=== PATIENT | male | born 1955 | race Caucasian/White ===

== ENCOUNTER 2019-10-04 15:45 | Emergency (ER) | payer OTHER ==
[2019-10-04] MEDS ORDERED: NS 0.9% 1000 ML** 1,000 ML IV ONE (15:48)
[2019-10-04] MEDS ORDERED: Ondansetron INJ* 2 MG/ML VIAL IV ONE (15:49)
--- NOTE | 2019-10-04 16:05 | ED ---
Neurological HPI - HPI Summary HPI Summary: 64 y/o male presented to [facility] by [facility] complaining of dizziness beginning at 1445 when he was last known well and called EMS. He was working out and went home to take a bath, at which time he became nauseous and felt as if the room was spinning. When EMS arrived, he was diaphoretic and was was not ambulatory secondary to being dizzy. The dizziness is also aggravated with movement of head. He denies any CP or SOB. In the ambulance, vitals showed hypertension and sinus to sinus tach 80s-100s bpm, BG 133. He was given 4mg Zofran on the way to [facility] but still nauseous in the room. Hx of possible vertigo ; recorded in past visits but patient declines previous symptoms. Luna medina called from room at 1548. Patient immediately to CT. - History of Current Complaint Chief Complaint: EDDizziness Stated Complaint: DIZZINESS PER EMS Time Seen by Provider: 10/04/19 15:48 Hx Obtained From: Patient, EMS Onset/Duration: Sudden Onset Timing: Sudden Onset Onset Severity: Moderate Current Severity: Severe Pain Intensity: 0 Pain Scale Used: 0-10 Numeric Character: Room Spinning, Dizzy Aggravating: Change in Head Position Alleviating: Closing Eyes Associated Signs and Symptoms: Positive: Unsteady Gait - not ambulatory at scene secondary to dizziness, Dizziness. Negative: Chest Pain TPA Considered: No - brain CT negative - Allergy/Home Medications Allergies/Adverse Reactions: Allergies Allergy/AdvReac Type Severity Reaction Status Date / Time colesevelam [From WelChol] Allergy Unknown Verified 10/04/19 16:10 Reaction Details niacin Allergy Unknown Verified 10/04/19 16:10 Reaction Details Kvfmutm-Drf-[id number] Reductase Allergy Unknown Verified 10/04/19 16:10 Inhibitor Reaction Details PMH/Surg Hx/FS Hx/Imm Hx Endocrine/Hematology History: Denies: Hx Diabetes Cardiovascular History: Reports: Hx Hypercholesterolemia Neurological History: Reports: Other Neuro Impairments/Disorders - possible vertigo - Surgical History Surgical History: None Surgery Procedure, Year, and Place: none Infectious Disease History: No Infectious Disease History: Denies: Traveled Outside the [place] in Last 30 Days - Family History Known Family History: Negative: Renal Disease - Social History Alcohol Use: None Hx Substance Use: No Substance Use Type: Reports: None Hx Tobacco Use: No Smoking Status (MU): Never Smoked Tobacco Review of Systems Negative: Chest Pain Negative: Shortness Of Breath Positive: Vomiting, Nausea Neurological: Other - dizziness All Other Systems Reviewed And Are Negative: Yes Physical Exam - Summary Physical Exam Summary: Constitutional: Well-developed, Well-nourished, Alert. (+) Moderate Distress, Diaphoretic Skin: Warm, Dry HENT: Normocephalic; Atraumatic Eyes: Conjunctiva normal Neck: Musculoskeletal ROM normal neck. (-) JVD, (-) Nuchal rigidity Cardio: Rhythm regular, rate normal, Heart sounds normal; Intact distal pulses; Radial pulses are 2+ and symmetric. (-) Murmur Pulmonary/Chest wall: Effort normal. (-) Respiratory distress, (-) Wheezes, (-) Rales Abd: Soft. (-) Tenderness, (-) Distension, (-) Guarding, (-) Rebound Musculoskeletal: (-) Edema Lymph: (-) Cervical adenopathy Neuro: Alert, PERRL, Oriented x3, Strength normal, Cranial nerves II-XII are grossly intact. SILT, Strength 5/5 BUE and BLE, (-) Dysmetria, (-) Nystagmus, gait deferred. Right side nystagmus. [place]-Hallpike positive on left. Psych: Mood and affect Normal Triage Information Reviewed: Yes Vital Signs On Initial Exam: Initial Vitals Temp Pulse Resp BP Pulse Ox 95.4 F 97 18 175/150 94 10/04/19 15:47 10/04/19 15:47 10/04/19 15:47 10/04/19 15:47 10/04/19 15:47 Vital Signs Reviewed: Yes - [place] Coma Scale Best Eye Response: 4 - Spontaneous Best Motor Response: 6 - Obeys Commands Best Verbal Response: 5 - Oriented Coma Scale Total: 15 Procedures - Sedation Patient Received Moderate/Deep Sedation with Procedure: No Diagnostics - Vital Signs Vital Signs Temp Pulse Resp BP Pulse Ox 10/04/19 15:47 95.4 F 97 18 175/150 94 - Laboratory Result Diagrams: 10/04/19 16:15 10/04/19 16:15 Lab Statement: Any lab studies that have been ordered have been reviewed, and results considered in the medical decision making process. - Radiology CXR Radiology Interpretation Completed By: Radiologist Summary of Radiographic Findings: IMPRESSION: NO ACTIVE CARDIOPULMONARY DISEASE IS NOTED. This report was reviewed by the ED physician. cxr Radiology Interpretation Completed By: Radiologist Summary of Radiographic Findings: IMPRESSION: NO ACTIVE CARDIOPULMONARY DISEASE IS NOTED. This report was reviewed by the ED physician. - CT Brain CT CT Interpretation Completed By: Radiologist Summary of CT Findings: IMPRESSION: No definite intracranial mass or hemorrhage is noted. This report was reviewed by the ED physician. head CT Interpretation Completed By: Radiologist Summary of CT Findings: IMPRESSION: No definite intracranial mass or hemorrhage is noted. This report was reviewed by the ED physician. - EKG 1603 Cardiac Rate: NL - 84 bpm EKG Rhythm: Sinus Rhythm Summary of EKG Findings: An EKG at 1603 reveals normal sinus rhythm at 84bpm, mildly prolonged QTC at 485. T-wave inversions at V1, V5, and V6. No STEMI. This EKG was reviewed and interpreted by the ED physician. NIH Scale - NIH Scale Level of Consciousness: Alert/Keenly Responsive Ask Patient the Month and His/Her Age: Both Correct Ask Pt to Open/Close Eyes and Smash Piecer/Release Non-Paretic Hand: Both Correctly Best Gaze (Only Horizontal Eye Movement): Normal Visual Field Testing: No Visual Loss Facial Paresis-Pt to Smile & Close Eyes or Grimace Symmetry: Normal/Symmetrical Motor Function - Right Arm: No Drift-Holds 10 Seconds Motor Function - Left Arm: No Drift-Holds 10 Seconds Motor Function - Right Leg: No Drift-Holds 10 Seconds Motor Function - Left Leg: No Drift-Holds 10 Seconds Limb Ataxia-Must be out of Proportion to Weakness Present: Absent Sensory (Use Pinprick to Test Arms/Legs/Trunk/Face): Normal Best Language (Describe Picture, Name Items): No Aphasia Dysarthria (Read Several Words): Normal Extinction and Inattention: No Abnormality Total Score: 0 Re-Evaluation - Re-Evaluation First Eval Re-Evaluation Time: 16:07 Comment: ED physician was informed by radiology of a negative head CT for CVA. The patient was informed of the results. Second Eval Re-Evaluation Time: 18:00 Change: Improved - feeling better, resting. Given meclizine Third Eval Re-Evaluation Time: 19:29 Change: Improved - Pt is feeling better. No recurrent vertigo. Course/Dx - Course Course Of Treatment: 64-year-old male with a history of hyperlipidemia and possible vertigo in the past presents with severe vertigo, nausea, diaphoresis. - On arrival to ED, very diaphoretic, vomiting. Unable to complete full neuro exam secondary to patient's vertigo. Patient has right-sided nystagmus, no obvious dysmetria. Code duggan called and concern for posterior stroke. Head CT negative for stroke. Patient's symptoms improved with 8 mg of Zofran. Labs notable for a normal troponin, EKG sinus without ischemic changes. Chest x-ray without any abnormalities. Case was discussed with on-call neurology at [facility]. They feel this is most likely peripheral given patient's lack of other neurologic findings, and return to baseline after medications. Patient was observed in the ED for several hours, had no recurrence of his vertigo, was able to ambulate and tolerate by mouth. Patient is feeling much better. Patient was given meclizine as needed for home, told to return for worsening symptoms and to follow up with neurology if he has persistent vertigo. Patient had intermittent elevated BP 150-180. No hx HTN. No signs of end organ damange on labs (normal trop, ekg), no headaches. Suspect could be 2/2 feeling unwell/ current vertigo episode. He will follow up w his PCP for BP recheck. - Diagnoses Provider Diagnoses: BPPV (benign paroxysmal positional vertigo) - Physician Notifications Discussed Care Of Patient With: Bo Weiss Time Discussed With Above Provider: 16:30 Instructed by Provider To: Other - Pt case was discussed with Dr. Weiss, who recommended that the ED physician perform a [place] Hallpike exam. Dr. Weiss will perform a telestroke. Discharge ED - Sign-Out/Discharge Documenting (check all that apply): Patient Departure - dc - Discharge Plan Condition: Stable Disposition: HOME Prescriptions: Meclizine TAB* [Antivert 12.5 TAB*] 12.5 mg PO TID PRN 7 Days #21 tab PRN Reason: Vertigo Patient Education Materials: Vertigo (ED), Benign Paroxysmal Positional Vertigo (ED) Referrals: Jim Sahu MD [Primary Care Provider] - Additional Instructions: You were seen in the emergency department for dizziness. Your CT scan did not show any abnormalities. We discussed this with her on-call neurologist who thinks you have benign paroxysmal positional vertigo. Please take meclizine as needed for vertigo and follow-up with neurology if you have persistent symptoms. If any studies were not completed at the time of discharge you will be called with the relevant results. Please follow up with your primary care doctor in next 2-3 days and return to emergency department for worsening vertigo, numbness or weakness of the arms or legs, inability to walk, or concerning symptoms. It was a pleasure taking care of you today. - Billing Disposition and Condition Condition: STABLE Disposition: Home - Attestation Statements Document Initiated by Cezar: Yes Documenting Scribe: Arlyn Dugan Provider For Whom Cezar is Documenting (Include Credential): Dr. Anita Myers MD Scribe Attestation: IArlyn scribed for Dr. Anita Myers MD on 10/05/19 at 0957. Scribe Documentation Reviewed: Yes Provider Attestation: The documentation as recorded by the Arlyn bryant accurately reflects the service I personally performed and the decisions made by me, Dr. Anita Myers MD Status of Cezar Document: Viewed
[2019-10-04 16:25] LABS: ABS Basophils 0.1 10^3/ul (0-0.2); ABS Eosinophils 0.1 10^3/ul (0-0.6); ABS Lymphocytes 2.9 10^3/ul (1.0-4.8); ABS Monocytes 0.5 10^3/ul (0-0.8); ABS Neutrophils 3.9 10^3/ul (1.5-7.7); Eosinophil % 0.8 %; Hematocrit 44 % (42-52); Lymphocyte % 38.6 %; Mean Corpuscular HGB Conc 35 g/dL (31-36); Mean Corpuscular Hemoglobin 30 pg (27-31); Mean Corpuscular Volume 86 fL (80-94); Mean Platelet Volume 6.9 fL (7.4-10.4); Nucleated Red Blood Cells % 0.1; Platelet Count 240 10^3/uL (150-450); Red Blood Count 5.09 10^6 /uL (4.18-5.48); Red Cell Distribution Width 14 % (10-15); White Blood Count 7.4 10^3/uL (3.5-10.8)
[2019-10-04 16:34] LABS: Activated Partial Thrombo Time 28.8 seconds (26.0-38.0); INR 0.94 (0.82-1.09)
[2019-10-04 16:43] LABS: Albumin 4.2 g/dL (3.2-5.2); Albumin/Globulin Ratio 1.9 (1-3); BUN/Creatinine Ratio 20.8 (8-20); EGFR African American 85.7 (>60); EGFR Non-African American 70.8 (>60); Globulin 2.2 g/dL (2-4); HDL Cholesterol 27.6 mg/dL; Potassium 3.3 mmol/L (3.5-5.0); Total Bilirubin 0.7 mg/dL (0.2-1.0); Total Protein 6.4 g/dL (6.4-8.9)
[2019-10-04] MEDS ORDERED: Meclizine TAB* 12.5 MG PO ONE ×2 (17:28→19:55)
[2019-10-04 20:19] VITALS: BP 175/107
== END 2019-10-04 20:17 | disposition home or self-care (01) ==
LOC: ED 15:45
DX: H81.10 Benign paroxysmal vertigo, unspecified ear (principal); E78.00 Pure hypercholesterolemia, unspecified; Z88.8 Allergy status to other drugs, medicaments and biological substances
CPT/HCPCS: 36415; 70450; 71045; 80053; 80061; 83605; 84484; 85025; 85610; 85730; 93005; 96361; 96374; 99284; A9270-GY; J2405

== ENCOUNTER 2022-08-16 10:28 | Observation (INO) ==
[2022-08-16 11:09] LABS: ABS Eosinophils 0.1 10^3/ul (0-0.6); ABS Lymphocytes 1.4 10^3/ul (1.0-4.8); ABS Monocytes 0.4 10^3/ul (0-0.8); ABS Neutrophils 4.1 10^3/ul (1.5-7.7); Eosinophil % 1.4 %; Hematocrit 43 % (42-52); Hemoglobin 14.7 g/dL (14.0-18.0); Lymphocyte % 22.6 %; Mean Corpuscular HGB Conc 34 g/dL (31-36); Mean Corpuscular Hemoglobin 29 pg (27-31); Mean Corpuscular Volume 86 fL (80-94); Platelet Count 220 10^3/uL (150-450); Red Blood Count 5.06 10^6 /uL (4.18-5.48); Red Cell Distribution Width 14 % (10-15)
[2022-08-16 11:51] LABS: Albumin 4.2 g/dL (3.2-5.2); Albumin/Globulin Ratio 2.5 (1-3); Calcium 9.1 mg/dL (8.6-10.3); Globulin 1.7 g/dL (2-4); Potassium 4.2 mmol/L (3.5-5.0); Total Bilirubin 0.6 mg/dL (0.2-1.0); Total Protein 5.9 g/dL (6.4-8.9); eGFR CKD-EPI 75.3 (>60)
[2022-08-16] MEDS ORDERED: Ondansetron 4 mg VIAL 2 MG/ML 2 ml VIAL IV PRN (12:23)
[2022-08-16] MEDS ORDERED: Gadoteridol (CONTRAST) 279.3 MG/ML 10 ML IV ONE (21:17)
[2022-08-17 07:20] LABS: CO2 Carbon Dioxide 23 mmol/L (22-32); Calcium 9.7 mg/dL (8.6-10.3); Chloride 106 mmol/L (101-111); Magnesium 2.1 mg/dL (1.9-2.7); Sodium 139 mmol/L (135-145)
[2022-08-17 07:26] LABS: Blood Urea Nitrogen 19 mg/dL (6-24); Cholesterol 148 mg/dL; Glucose 109 mg/dL (70-100); HDL Cholesterol 26.5 mg/dL; LDL Cholesterol 104 mg/dL; Triglycerides 88 mg/dL; eGFR CKD-EPI 65.8 (>60)
[2022-08-17 07:43] LABS: Anion Gap 10 mmol/L (2-11)
[2022-08-17 07:43] LABS: ABS Basophils 0.1 10^3/ul (0-0.2); ABS Eosinophils 0.1 10^3/ul (0-0.6); ABS Monocytes 0.6 10^3/ul (0-0.8); ABS Neutrophils 4.5 10^3/ul (1.5-7.7); Eosinophil % 1.8 %; Hematocrit 46 % (42-52); Hemoglobin 15.3 g/dL (14.0-18.0); Lymphocyte % 27.3 %; Mean Corpuscular HGB Conc 33 g/dL (31-36); Mean Corpuscular Hemoglobin 29 pg (27-31); Mean Corpuscular Volume 87 fL (80-94); Mean Platelet Volume 7.2 fL (7.4-10.4); Nucleated Red Blood Cells % 0.1; Platelet Count 222 10^3/uL (150-450); Red Blood Count 5.27 10^6 /uL (4.18-5.48); Red Cell Distribution Width 14 % (10-15); White Blood Count 7.3 10^3/uL (3.5-10.8)
[2022-08-17] MEDS ORDERED: Cholecalciferol (VIT D3) 1,000 unit TAB PO SCH (09:00)
[2022-08-17] MEDS ORDERED: Aspirin EC 325 mg TAB.EC PO SCH (09:00)
[2022-08-17] MEDS ORDERED: DULoxetine DR 60 mg CAP PO SCH (09:00)
[2022-08-17 11:51] VITALS: BP 157/100
== END 2022-08-17 15:00 | disposition home or self-care (01) ==
LOC: MERGE 10:28 → ED 10:28 → EDHOLD 10:28 → MEDTELE 08-17 00:20
PROVIDERS: ADMIT Internal Medicine; ATTEND Internal Medicine